=== PATIENT | male | born 1965 | race African-American/Black ===

== ENCOUNTER 2019-12-03 19:19 | Inpatient (IN) | payer OTHER ==
[~2019-12-03] VITALS: Ht 190.5 cm; Wt 87.7 kg
[~2019-12-03 19:19] MED LIST: AMLO5TAB9 PO; HYDR-1475 PO; LISI-660 PO
[2019-12-03 20:11] LABS: BASOPHILS % (AUTO) 0.7 % (0.0-2.0); EOSINOPHILS % (AUTO) 3.9 % (1.0-6.0); HEMATOCRIT 37.7 % (41-53); HEMOGLOBIN 12.7 g/dL (13.5-17.5); LYMPHOCYTES # (AUTO) 2.3 K/uL (1.0-4.8); LYMPHOCYTES % (AUTO) 32.9 % (22.0-44.0); MEAN CORPUSCULAR HEMOGLOBIN 31.9 pg (26.0-34.0); MEAN CORPUSCULAR HGB CONC 33.8 G/dL (31.0-37.0); MEAN CORPUSCULAR VOLUME 94 fL (80-100); MONOCYTES # (AUTO) 0.5 K/uL (0.1-1.0); MONOCYTES % (AUTO) 6.8 % (2.0-9.0); NEUTROPHILS # (AUTO) 3.9 K/uL (1.8-7.7); NEUTROPHILS % (AUTO) 55.7 % (40.0-70.0); PLATELET COUNT (AUTO) 247 K/uL (150-450); RED CELL DISTRIBUTION WIDTH 13.4 % (11.5-14.5)
[2019-12-03] MEDS ORDERED: ASPIRIN 325 MG TABLET PO ONE (20:15)
[2019-12-03 20:26] LABS: ANION GAP 9 mmol/L (8-16); CALCIUM, TOTAL 8.6 mg/dL (8.8-10.5); CARBON DIOXIDE 24 mmol/L (22-29); CHLORIDE 104 mmol/L (98-107); CREATININE 1.18 mg/dL (0.60-1.30); GLOMERULAR FILTR. RATE CALC > 60 mL/min (>60); GLUCOSE,RANDOM 93 mg/dL (70-110); POTASSIUM 3.6 mmol/L (3.5-5.1); SODIUM SERUM 137 mmol/L (136-145); UREA NITROGEN, BLOOD 25 mg/dL (7-18)
[2019-12-03 20:51] LABS: ALANINE AMINOTRANSFERASE 27 U/L (12-78); ALBUMIN 3.4 g/dL (3.4-5.0); ALKALINE PHOSPHATASE 60 U/L (46-116); ASPARTATE AMINOTRANSFERASE 19 U/L (15-37); BILIRUBIN,TOTAL 0.5 mg/dL (0.1-1.0); CREATINE KINASE, TOTAL ONLY 262 U/L (39-308); TOTAL PROTEIN, SERUM 6.6 g/dL (6.4-8.2)
[2019-12-03 20:52] LABS: D-DIMER 0.34 mg/L FEU (0.00-0.50)
[2019-12-03 20:57] LABS: B-TYPE NATRIURETIC PEPTIDE 14 pg/mL (0-100); PROTHROMBIN TIME 11.4 SEC (9.4-11.6)
[2019-12-03 20:58] LABS: INR 1.1 (0.9-1.1)
[2019-12-03 21:14] LABS: APPEARANCE,URINE CLEAR (CLEAR); BILIRUBIN,URINE NEGATIVE (NEGATIVE); GLUCOSE, URINE (UA) NEGATIVE (NEGATIVE); KETONES,URINE NEGATIVE (NEGATIVE); LEUKOCYTE ESTERASE ,URINE NEGATIVE (NEGATIVE); NITRATE,URINE NEGATIVE (NEGATIVE); OCCULT BLOOD,URINE NEGATIVE (NEGATIVE); PROTEIN,URINE NEGATIVE (NEGATIVE)
[2019-12-03] MEDS ORDERED: 0.9% SODIUM CHLORIDE 10 ML SYRINGE IVP PRN (22:15)
[2019-12-03] MEDS ORDERED: ACETAMINOPHEN 325 MG TABLET PO PRN (22:15)
[2019-12-03] MEDS ORDERED: ONDANSETRON HCL 4 MG/2 ML VIAL IVP PRN (22:15)
[2019-12-03 23:11] VITALS: BP 113/75
[2019-12-04] MEDS ORDERED: MAGNESIUM HYDROXIDE SUSPENSION 30 ML UDCUP PO PRN
[2019-12-04] MEDS ORDERED: HYDROCODONE/ACETAMINOPHEN 5-325 MG TABLET PO PRN
[2019-12-04] MEDS ORDERED: ZOLPIDEM TARTRATE 10 MG TABLET PO PRN
[2019-12-04] MEDS ORDERED: ONDANSETRON HCL 4 MG/2 ML VIAL IVP PRN
[2019-12-04] MEDS ORDERED: MORPHINE SULFATE 2 MG/ML SYRINGE IVP PRN
[2019-12-04] MEDS ORDERED: IPRATROPIUM BROMIDE 0.5 MG/2.5 ML NEB SOLUTION NEB PRN
[2019-12-04] MEDS ORDERED: ACETAMINOPHEN 325 MG TABLET PO PRN
[2019-12-04] MEDS: NITROGLYCERIN 2% (1 GM=INCH) PACKET TP SCH ×4 (00:04→18:13)
[2019-12-04 05:10] VITALS: BP 100/63
[2019-12-04 06:37] LABS: BASOPHILS % (AUTO) 0.8 % (0.0-2.0); EOSINOPHILS % (AUTO) 4.4 % (1.0-6.0); HEMATOCRIT 37.8 % (41-53); HEMOGLOBIN 12.6 g/dL (13.5-17.5); LYMPHOCYTES # (AUTO) 2.3 K/uL (1.0-4.8); LYMPHOCYTES % (AUTO) 40.7 % (22.0-44.0); MEAN CORPUSCULAR HEMOGLOBIN 31.9 pg (26.0-34.0); MEAN CORPUSCULAR HGB CONC 33.3 G/dL (31.0-37.0); MEAN CORPUSCULAR VOLUME 96 fL (80-100); MONOCYTES # (AUTO) 0.4 K/uL (0.1-1.0); MONOCYTES % (AUTO) 7.4 % (2.0-9.0); NEUTROPHILS # (AUTO) 2.7 K/uL (1.8-7.7); NEUTROPHILS % (AUTO) 46.7 % (40.0-70.0); PLATELET COUNT (AUTO) 235 K/uL (150-450); RED BLOOD CELL COUNT(AUTO) 3.95 MIL/uL (4.50-5.90); RED CELL DISTRIBUTION WIDTH 13.4 % (11.5-14.5)
[2019-12-04 06:59] LABS: ALANINE AMINOTRANSFERASE 26 U/L (12-78); ALBUMIN 3.3 g/dL (3.4-5.0); ALKALINE PHOSPHATASE 59 U/L (46-116); ANION GAP 8 mmol/L (8-16); ASPARTATE AMINOTRANSFERASE 16 U/L (15-37); BILIRUBIN,TOTAL 0.7 mg/dL (0.1-1.0); CALCIUM, TOTAL 8.8 mg/dL (8.8-10.5); CARBON DIOXIDE 26 mmol/L (22-29); CHLORIDE 107 mmol/L (98-107); CHOL/HDL RATIO 2.5 (4.2-7.3); CHOLESTEROL 115 mg/dL (131-200); CREATININE 1.19 mg/dL (0.60-1.30); GLOMERULAR FILTR. RATE CALC > 60 mL/min (>60); GLUCOSE,RANDOM 95 mg/dL (70-110); HDL CHOLESTEROL 46 mg/dL (40-60); LDL CHOL (CALC.) 52 mg/dL (0-130); POTASSIUM 3.9 mmol/L (3.5-5.1); SODIUM SERUM 141 mmol/L (136-145); TOTAL PROTEIN, SERUM 6.4 g/dL (6.4-8.2); TRIGLYCERIDES 83 mg/dL (15-150); UREA NITROGEN, BLOOD 22 mg/dL (7-18)
[2019-12-04 07:22] VITALS: BP 114/65
[2019-12-04] MEDS: ASPIRIN 81 MG CHEWABLE TABLET PO SCH (08:04)
[2019-12-04] MEDS: DOCUSATE SODIUM 100 MG CAPSULE PO SCH ×2 (08:05→21:00)
[2019-12-04] MEDS ORDERED: METO-558 PO (08:48)
[2019-12-04] MEDS ORDERED: FURO40 PO (08:48)
[2019-12-04] MEDS ORDERED: GABA-531 PO (08:48)
[2019-12-04] MEDS: METOPROLOL SUCCINATE 50 MG ER TABLET PO SCH (09:00)
[2019-12-04] MEDS: FUROSEMIDE 40 MG TABLET PO SCH ×2 (09:34→21:01)
[2019-12-04] MEDS: LISINOPRIL 5 MG TABLET PO SCH (09:34)
[2019-12-04] MEDS: GABAPENTIN 300 MG CAPSULE PO SCH ×2 (09:34→21:00)
[2019-12-04 11:12] VITALS: BP 104/58
[2019-12-04 15:10] VITALS: BP 105/56
[2019-12-04 19:40] VITALS: BP 113/68
[2019-12-05 00:18] VITALS: BP 101/62
[2019-12-05 04:57] VITALS: BP 105/59
[2019-12-05] MEDS: NITROGLYCERIN 2% (1 GM=INCH) PACKET TP SCH ×3 (06:59→12:00)
[2019-12-05 07:15] VITALS: BP 121/75
[2019-12-05] MEDS: METOPROLOL SUCCINATE 50 MG ER TABLET PO SCH (07:23)
[2019-12-05] MEDS: LISINOPRIL 5 MG TABLET PO SCH (07:42)
[2019-12-05] MEDS: DOCUSATE SODIUM 100 MG CAPSULE PO SCH (07:42)
[2019-12-05] MEDS: ASPIRIN 81 MG CHEWABLE TABLET PO SCH (07:42)
[2019-12-05] MEDS: GABAPENTIN 300 MG CAPSULE PO SCH (07:42)
[2019-12-05] MEDS: FUROSEMIDE 40 MG TABLET PO SCH (07:42)
[2019-12-05 10:38] VITALS: BP 111/59
== END 2019-12-05 14:35 | disposition home or self-care (01) | DRG 203 ==
LOC: EMS 19:19 → 5S 21:30
PROVIDERS: ADMIT Hospitalist; ATTEND Hospitalist
DX: M94.0 Chondrocostal junction syndrome [Tietze] (principal); I11.0 Hypertensive heart disease with heart failure; I50.9 Heart failure, unspecified; R07.89 Other chest pain; I25.10 Atherosclerotic heart disease of native coronary artery without angina pectoris; F17.210 Nicotine dependence, cigarettes, uncomplicated; Z88.0 Allergy status to penicillin; Z95.5 Presence of coronary angioplasty implant and graft
CPT/HCPCS: 85379; 87081; 93005; 93306; J2270

== ENCOUNTER 2023-09-27 11:00 | Inpatient (IN) | payer OTHER ==
[~2023-09-27] VITALS: Ht 185.4 cm; Wt 105.0 kg
[~2023-09-27 11:00] MED LIST changes: -AMLO5TAB9 PO; +ASPI-1444 PO; +ATOR40TA71 PO; +FURO40 PO; +GABA-1181 PO; -HYDR-1475 PO; -LISI-660 PO; +LISI-892 PO; +METO-558 PO
[2023-09-27] MEDS ORDERED: METO-391 PO (11:08)
[2023-09-27 11:29] LABS: BASOPHILS % (AUTO) 0.7 % (0.0-2.0); EOSINOPHILS % (AUTO) 1.8 % (1.0-6.0); HEMATOCRIT 46.7 % (41-53); HEMOGLOBIN 15.6 g/dL (13.5-17.5); LYMPHOCYTES # (AUTO) 2.3 K/uL (1.0-4.8); LYMPHOCYTES % (AUTO) 31.8 % (22.0-44.0); MEAN CORPUSCULAR HEMOGLOBIN 31.3 pg (26.0-34.0); MEAN CORPUSCULAR HGB CONC 33.5 G/dL (31.0-37.0); MEAN CORPUSCULAR VOLUME 94 fL (80-100); MONOCYTES # (AUTO) 0.6 K/uL (0.1-1.0); NEUTROPHILS # (AUTO) 4.1 K/uL (1.8-7.7); NEUTROPHILS % (AUTO) 57.7 % (40.0-70.0); PLATELET COUNT (AUTO) 276 K/uL (150-450); WHITE BLOOD COUNT (AUTO) 7.1 K/uL (4.5-11.0)
[2023-09-27 11:32] LABS: APPEARANCE,URINE HAZY (CLEAR); BILIRUBIN,URINE NEGATIVE (NEGATIVE); GLUCOSE, URINE (UA) NEGATIVE (NEGATIVE); KETONES,URINE NEGATIVE (NEGATIVE); LEUKOCYTE ESTERASE ,URINE NEGATIVE (NEGATIVE); NITRATE,URINE NEGATIVE (NEGATIVE); OCCULT BLOOD,URINE LARGE (NEGATIVE); PH,URINE 6.5 (5.0-8.0); PROTEIN,URINE TRACE mg/dL (NEGATIVE); SPECIFIC GRAVITIY, URINE 1.009 (1.003-1.030); UROBILINOGEN,URINE <=1.0 mg/dL (<=1.0)
[2023-09-27 11:34] LABS: COLOR,URINE RED (YELLOW); RBC,URINE Full Field /HPF (0-2)
[2023-09-27 11:35] LABS: BACTERIA,URINE None Seen /HPF (None Seen); SQUAMOUS EPITHELIAL CELL,UR Few /LPF (None Seen); WBC,URINE None Seen /HPF (0-5)
[2023-09-27 11:38] LABS: ANION GAP 10 mmol/L (8-16); CALCIUM, TOTAL 9.7 mg/dL (8.8-10.5); CARBON DIOXIDE 28 mmol/L (22-29); CHLORIDE 101 mmol/L (98-107); CREATININE 1.25 mg/dL (0.60-1.30); GLOMERULAR FILTR. RATE CALC > 60 mL/min (>60); GLUCOSE,RANDOM 110 mg/dL (70-110); POTASSIUM 3.8 mmol/L (3.5-5.1); SODIUM SERUM 139 mmol/L (136-145); UREA NITROGEN, BLOOD 13 mg/dL (7-18)
[2023-09-27 11:43] LABS: ALANINE AMINOTRANSFERASE 27 U/L (12-78); ALBUMIN 3.9 g/dL (3.4-5.0); ALKALINE PHOSPHATASE 70 U/L (46-116); ASPARTATE AMINOTRANSFERASE 20 U/L (15-37); BILIRUBIN,TOTAL 1.2 mg/dL (0.1-1.0); TOTAL PROTEIN, SERUM 7.5 g/dL (6.4-8.2)
[2023-09-27 11:46] LABS: TROPONIN I-HIGH SENSITIVITY 97 ng/L (<76)
[2023-09-27] MEDS: NITROGLYCERIN 2% (1 GM=INCH) OINTMENT PACKET TP ONE (13:25)
[2023-09-27] MEDS ORDERED: PRIM250T3 PO (13:25)
[2023-09-27] MEDS: KETOROLAC TROMETHAMINE 30 MG/ML VIAL IVP ONE (14:11)
[2023-09-27] MEDS ORDERED: ACETAMINOPHEN 325 MG TABLET PO PRN (15:00)
[2023-09-27] MEDS ORDERED: ZOLPIDEM TARTRATE 5 MG TABLET PO PRN (15:00)
[2023-09-27] MEDS ORDERED: MAGNESIUM HYDROXIDE SUSPENSION 30 ML UDCUP PO PRN (15:00)
[2023-09-27] MEDS ORDERED: BISACODYL 10 MG RECTAL RECTAL SUPPOSITORY PR PRN (15:00)
[2023-09-27] MEDS ORDERED: ONDANSETRON HCL 4 MG/2 ML VIAL IVP PRN (15:00)
[2023-09-27 15:23] VITALS: BP 99/58; PULSE 70; RESP 19; TEMP 98.3
[2023-09-27] MEDS: MORPHINE SULFATE 2 MG/ML SYRINGE IVP PRN (15:49)
[2023-09-27 18:00] LABS: TROPONIN I-HIGH SENSITIVITY 89 ng/L (<76)
[2023-09-27 20:25] VITALS: BP 104/65; PULSE 70; RESP 18; TEMP 97.8
[2023-09-27] MEDS: DOCUSATE SODIUM 100 MG CAPSULE PO SCH (20:52)
[2023-09-27] MEDS: FUROSEMIDE 40 MG TABLET PO SCH (20:52)
[2023-09-28 00:37] VITALS: BP 111/72; PULSE 68; RESP 18; TEMP 98
[2023-09-28 04:19] VITALS: BP 106/55; PULSE 69; RESP 18; TEMP 98.6
[2023-09-28 06:49] LABS: BASOPHILS % (AUTO) 0.5 % (0.0-2.0); EOSINOPHILS % (AUTO) 2.1 % (1.0-6.0); HEMATOCRIT 39.9 % (41-53); HEMOGLOBIN 13.5 g/dL (13.5-17.5); LYMPHOCYTES # (AUTO) 1.9 K/uL (1.0-4.8); LYMPHOCYTES % (AUTO) 27.4 % (22.0-44.0); MEAN CORPUSCULAR HEMOGLOBIN 31.3 pg (26.0-34.0); MEAN CORPUSCULAR HGB CONC 33.9 G/dL (31.0-37.0); MEAN CORPUSCULAR VOLUME 92 fL (80-100); MONOCYTES # (AUTO) 0.6 K/uL (0.1-1.0); MONOCYTES % (AUTO) 9.3 % (2.0-9.0); NEUTROPHILS # (AUTO) 4.2 K/uL (1.8-7.7); NEUTROPHILS % (AUTO) 60.7 % (40.0-70.0); PLATELET COUNT (AUTO) 247 K/uL (150-450); RED BLOOD CELL COUNT(AUTO) 4.32 MIL/uL (4.50-5.90); RED CELL DISTRIBUTION WIDTH 12.6 % (11.5-14.5); WHITE BLOOD COUNT (AUTO) 6.9 K/uL (4.5-11.0)
[2023-09-28 07:14] LABS: ANION GAP 10 mmol/L (8-16); CALCIUM, TOTAL 8.9 mg/dL (8.8-10.5); CARBON DIOXIDE 26 mmol/L (22-29); CHLORIDE 100 mmol/L (98-107); CREATININE 1.13 mg/dL (0.60-1.30); GLOMERULAR FILTR. RATE CALC > 60 mL/min (>60); GLUCOSE,RANDOM 118 mg/dL (70-110); POTASSIUM 3.5 mmol/L (3.5-5.1); SODIUM SERUM 135 mmol/L (136-145); UREA NITROGEN, BLOOD 16 mg/dL (7-18)
[2023-09-28] MEDS: ASPIRIN 81 MG DR TABLET PO SCH (07:50)
[2023-09-28] MEDS: ATORVASTATIN CALCIUM 40 MG TABLET PO SCH (07:51)
[2023-09-28] MEDS: PANTOPRAZOLE SODIUM 40 MG DR TABLET PO SCH (07:52)
[2023-09-28] MEDS: METOPROLOL SUCCINATE 50 MG ER TABLET PO SCH (07:53)
[2023-09-28] MEDS: LISINOPRIL 5 MG TABLET PO SCH (07:53)
[2023-09-28] MEDS: HYDROCODONE/ACETAMINOPHEN 5-325 MG TABLET PO PRN (10:59)
[2023-09-28 12:07] LABS: HEPATITIS C AB (EIA) Non Reactive (Non Reactive)
[2023-09-28 14:53] LABS: TROPONIN I-HIGH SENSITIVITY 78 ng/L (<76)
[2023-09-28 15:19] VITALS: BP 126/78; PULSE 57; RESP 18; TEMP 98.4
[2023-09-28] MEDS ORDERED: SODIUM CHLORIDE 0.9% 100 ML ONE (17:49)
[2023-09-28] MEDS ORDERED: IOHEXOL 350 MG/ML 100 ML VIAL ONE (17:49)
[2023-09-28 20:00] VITALS: BP 113/74; PULSE 54; RESP 19; TEMP 98.3
[2023-09-29] VITALS: BP 121/69; PULSE 66; RESP 17; TEMP 98
[2023-09-29 04:00] VITALS: BP 113/70; PULSE 65; RESP 18; TEMP 98.1
[2023-09-29 06:48] LABS: BASOPHILS % (AUTO) 0.4 % (0.0-2.0); EOSINOPHILS % (AUTO) 2.4 % (1.0-6.0); HEMATOCRIT 40.4 % (41-53); HEMOGLOBIN 13.5 g/dL (13.5-17.5); LYMPHOCYTES # (AUTO) 1.8 K/uL (1.0-4.8); LYMPHOCYTES % (AUTO) 29.6 % (22.0-44.0); MEAN CORPUSCULAR HEMOGLOBIN 31.1 pg (26.0-34.0); MEAN CORPUSCULAR HGB CONC 33.4 G/dL (31.0-37.0); MEAN CORPUSCULAR VOLUME 93 fL (80-100); MONOCYTES # (AUTO) 0.5 K/uL (0.1-1.0); MONOCYTES % (AUTO) 7.8 % (2.0-9.0); NEUTROPHILS # (AUTO) 3.6 K/uL (1.8-7.7); NEUTROPHILS % (AUTO) 59.8 % (40.0-70.0); PLATELET COUNT (AUTO) 236 K/uL (150-450); RED BLOOD CELL COUNT(AUTO) 4.33 MIL/uL (4.50-5.90); RED CELL DISTRIBUTION WIDTH 12.9 % (11.5-14.5); WHITE BLOOD COUNT (AUTO) 6.1 K/uL (4.5-11.0)
[2023-09-29 08:08] VITALS: BP 118/70; PULSE 59; RESP 18; TEMP 98
[2023-09-29 11:05] VITALS: BP 100/57; PULSE 55; RESP 18; TEMP 99
== END 2023-09-29 13:20 | disposition home or self-care (01) | DRG 500 ==
LOC: EMS 11:00 → 5S 13:49
PROVIDERS: ADMIT Internal Medicine; ATTEND Internal Medicine
DX: C61 Malignant neoplasm of prostate (principal); C79.51 Secondary malignant neoplasm of bone; I11.0 Hypertensive heart disease with heart failure; I50.9 Heart failure, unspecified; I42.7 Cardiomyopathy due to drug and external agent; F17.210 Nicotine dependence, cigarettes, uncomplicated; E78.5 Hyperlipidemia, unspecified; G89.3 Neoplasm related pain (acute) (chronic); Z88.0 Allergy status to penicillin; Z79.899 Other long term (current) drug therapy; Z79.82 Long term (current) use of aspirin
CPT/HCPCS: 71045; 71260; 72193; 74160; 74176; 80048; 80053; 81001; 83880; 84153; 84484; 85025; 86803; 87340; 93005; 93306; 99285; J1885; J2270; J7050; Q9967; 36415-L1; 36415-TC

== ENCOUNTER 2024-02-21 03:33 | Emergency (ER) | payer OTHER ==
[~2024-02-21] VITALS: Ht 190.5 cm; Wt 101.8 kg
[~2024-02-21 03:33] MED LIST changes: -GABA-1181 PO; +METO-391 PO; -METO-558 PO; +PRIM250T3 PO
[2024-02-21 03:47] VITALS: BP 135/76; PULSE 88; RESP 18; TEMP 97.3
== END 2024-02-21 04:35 | disposition home or self-care (01) ==
LOC: EMS 03:33
DX: S50.861A Insect bite (nonvenomous) of right forearm, initial encounter (principal); M79.601 Pain in right arm; D09.9 Carcinoma in situ, unspecified; I11.0 Hypertensive heart disease with heart failure; I50.9 Heart failure, unspecified; F17.210 Nicotine dependence, cigarettes, uncomplicated; W57.XXXA Bitten or stung by nonvenomous insect and other nonvenomous arthropods, initial encounter; Y93.89 Activity, other specified; Y92.89 Other specified places as the place of occurrence of the external cause; Y99.8 Other external cause status
CPT/HCPCS: 99281; Z7502

== ENCOUNTER 2024-08-10 12:59 | Inpatient (IN) | payer OTHER ==
[~2024-08-10] VITALS: Ht 177.8 cm; Wt 90.9 kg
[~2024-08-10 12:59] MED LIST changes: -FURO40 PO; +FURO40TA6 PO
[2024-08-10 13:31] LABS: COVID AG,FIA SOURCE NASAL SWAB
[2024-08-10] MEDS: SODIUM CHLORIDE 0.9% 1,000 ML IV ONE (13:44)
[2024-08-10 13:47] LABS: BASOPHILS % (AUTO) 0.3 % (0.0-2.0); CREATININE 1.66 mg/dL (0.60-1.30); EOSINOPHILS % (AUTO) 0 % (1.0-6.0); HEMATOCRIT 41.2 % (41-53); HEMOGLOBIN 13.7 g/dL (13.5-17.5); LYMPHOCYTES # (AUTO) 0.4 K/uL (1.0-4.8); LYMPHOCYTES % (AUTO) 8.2 % (22.0-44.0); MEAN CORPUSCULAR HEMOGLOBIN 31.4 pg (26.0-34.0); MEAN CORPUSCULAR HGB CONC 33.3 G/dL (31.0-37.0); MEAN CORPUSCULAR VOLUME 94 fL (80-100); MONOCYTES # (AUTO) 0.6 K/uL (0.1-1.0); MONOCYTES % (AUTO) 13.7 % (2.0-9.0); NEUTROPHILS # (AUTO) 3.5 K/uL (1.8-7.7); NEUTROPHILS % (AUTO) 77.8 % (40.0-70.0); PLATELET COUNT (AUTO) 170 K/uL (150-450); POTASSIUM 3.9 mmol/L (3.5-5.1); RED BLOOD CELL COUNT(AUTO) 4.37 MIL/uL (4.50-5.90); RED CELL DISTRIBUTION WIDTH 13.9 % (11.5-14.5); WHITE BLOOD COUNT (AUTO) 4.5 K/uL (4.5-11.0)
[2024-08-10 13:51] LABS: SARS-COV2 (COVID) ANTIGEN,FIA Negative (Negative)
[2024-08-10 13:57] LABS: INFLUENZA TYPE B NEGATIVE FOR TYPE B (NEGATIVE)
[2024-08-10 14:00] LABS: INFLUENZA TYPE A POSITIVE FOR TYPE A (NEGATIVE)
[2024-08-10 14:02] LABS: TROPONIN I-HIGH SENSITIVITY 131 ng/L (<76)
[2024-08-10 15:22] LABS: TROPONIN I-HIGH SENSITIVITY 89 ng/L (<76)
[2024-08-10] MEDS: MORPHINE SULFATE 2 MG/ML SYRINGE IVP ONE (16:18)
[2024-08-10] MEDS: ONDANSETRON HCL 4 MG/2 ML VIAL IVP ONE (16:34)
[2024-08-10] MEDS ORDERED: IPRATROPIUM BROMIDE 0.5 MG/2.5 ML NEB SOLUTION NEB PRN (19:15)
[2024-08-10] MEDS ORDERED: ALBUTEROL SULFATE 2.5 MG/0.5 ML NEB SOLUTION NEB PRN (19:15)
[2024-08-10] MEDS ORDERED: ONDANSETRON HCL 4 MG/2 ML VIAL IVP PRN (19:15)
[2024-08-10] MEDS: ASPIRIN 81 MG CHEWABLE TABLET PO ONE (19:25)
[2024-08-10] MEDS: OSELTAMIVIR PHOSPHATE 30 MG CAPSULE PO SCH (20:22)
[2024-08-10] MEDS: METOPROLOL TARTRATE 25 MG TABLET PO SCH (20:22)
[2024-08-10] MEDS: ACETAMINOPHEN 325 MG TABLET PO PRN (20:22)
[2024-08-10] MEDS: DOCUSATE SODIUM 100 MG CAPSULE PO SCH (20:22)
[2024-08-10] MEDS: SODIUM CHLORIDE 0.9% 250 ML IV ONE (22:05)
[2024-08-10 23:24] LABS: TROPONIN I-HIGH SENSITIVITY 127 ng/L (<76)
[2024-08-11] MEDS: HEPARIN SODIUM,PORCINE 5,000 UNITS/ML VIAL SQ SCH (00:27)
[2024-08-11 06:54] LABS: BASOPHILS % (AUTO) 0.3 % (0.0-2.0); EOSINOPHILS % (AUTO) 0 % (1.0-6.0); HEMATOCRIT 36.8 % (41-53); HEMOGLOBIN 12.4 g/dL (13.5-17.5); LYMPHOCYTES # (AUTO) 0.5 K/uL (1.0-4.8); LYMPHOCYTES % (AUTO) 13.9 % (22.0-44.0); MEAN CORPUSCULAR HEMOGLOBIN 31.6 pg (26.0-34.0); MEAN CORPUSCULAR HGB CONC 33.8 G/dL (31.0-37.0); MEAN CORPUSCULAR VOLUME 93 fL (80-100); MONOCYTES # (AUTO) 0.4 K/uL (0.1-1.0); MONOCYTES % (AUTO) 11.3 % (2.0-9.0); NEUTROPHILS # (AUTO) 2.5 K/uL (1.8-7.7); NEUTROPHILS % (AUTO) 74.5 % (40.0-70.0); PLATELET COUNT (AUTO) 146 K/uL (150-450); RED BLOOD CELL COUNT(AUTO) 3.94 MIL/uL (4.50-5.90); RED CELL DISTRIBUTION WIDTH 13.4 % (11.5-14.5); WHITE BLOOD COUNT (AUTO) 3.4 K/uL (4.5-11.0)
[2024-08-11 07:11] LABS: ANION GAP 10 mmol/L (8-16); CALCIUM, TOTAL 8.2 mg/dL (8.8-10.5); CARBON DIOXIDE 24 mmol/L (22-29); CHLORIDE 107 mmol/L (98-107); CREATININE 1.28 mg/dL (0.60-1.30); GLOMERULAR FILTR. RATE CALC > 60 mL/min (>60); GLUCOSE,RANDOM 101 mg/dL (70-110); POTASSIUM 3.9 mmol/L (3.5-5.1); SODIUM SERUM 141 mmol/L (136-145); UREA NITROGEN, BLOOD 24 mg/dL (7-18)
[2024-08-11] MEDS ORDERED: RELU120T PO (07:45)
[2024-08-11] MEDS ORDERED: CALC-959 PO (07:45)
[2024-08-11] MEDS ORDERED: GABA-1181 PO (07:45)
[2024-08-11] MEDS ORDERED: TAMS0.4C94 PO (07:45)
[2024-08-11 07:48] VITALS: BP 105/79; PULSE 84; RESP 18; TEMP 98.3; O2SAT 93
[2024-08-11 07:52] VITALS: BP 120/68; PULSE 73; RESP 18; TEMP 99.9; O2SAT 99
[2024-08-11] MEDS: ASPIRIN 81 MG CHEWABLE TABLET PO SCH (09:47)
[2024-08-11 11:51] VITALS: BP 98/53; PULSE 71; RESP 18; TEMP 99.7; O2SAT 100
[2024-08-11] MEDS: PERFLUTREN PROTEIN-A MICROSPHERES 0.22 MG/ML 3 ML VIAL IVP ONE (13:27)
[2024-08-11 15:58] VITALS: BP 116/76; PULSE 68; RESP 18; TEMP 99.6; O2SAT 98
[2024-08-11] MEDS: GABAPENTIN 300 MG CAPSULE PO SCH (16:26)
[2024-08-11 20:05] VITALS: BP 101/65; PULSE 80; RESP 18; TEMP 99.8; O2SAT 95
[2024-08-11] MEDS: OSELTAMIVIR PHOSPHATE 75 MG CAPSULE PO SCH (20:47)
[2024-08-11] MEDS: CALCIUM OYSTER SHELL 250 MG-VIT D3 125 UNITS[3.125MCG] TABLET PO SCH (20:47)
[2024-08-11] MEDS: ATORVASTATIN CALCIUM 40 MG TABLET PO SCH (20:47)
[2024-08-12] VITALS (7 sets, daily range): BP systolic 94–124; BP diastolic 55–80; PULSE 64–71; RESP 17–19; TEMP 98.1–99.5; O2SAT 95–100
[2024-08-12 08:00] LABS: BASOPHILS % (AUTO) 1.8 % (0.0-2.0); EOSINOPHILS % (AUTO) 0.4 % (1.0-6.0); HEMATOCRIT 35.8 % (41-53); HEMOGLOBIN 12.2 g/dL (13.5-17.5); LYMPHOCYTES # (AUTO) 0.7 K/uL (1.0-4.8); LYMPHOCYTES % (AUTO) 27.9 % (22.0-44.0); MEAN CORPUSCULAR HEMOGLOBIN 31.9 pg (26.0-34.0); MEAN CORPUSCULAR HGB CONC 34.1 G/dL (31.0-37.0); MEAN CORPUSCULAR VOLUME 94 fL (80-100); MONOCYTES # (AUTO) 0.4 K/uL (0.1-1.0); MONOCYTES % (AUTO) 16.6 % (2.0-9.0); NEUTROPHILS # (AUTO) 1.3 K/uL (1.8-7.7); NEUTROPHILS % (AUTO) 53.3 % (40.0-70.0); PLATELET COUNT (AUTO) 130 K/uL (150-450); RED BLOOD CELL COUNT(AUTO) 3.83 MIL/uL (4.50-5.90); RED CELL DISTRIBUTION WIDTH 13.4 % (11.5-14.5); WHITE BLOOD COUNT (AUTO) 2.4 K/uL (4.5-11.0)
[2024-08-12 08:03] LABS: ANION GAP 10 mmol/L (8-16); CARBON DIOXIDE 24 mmol/L (22-29); CHLORIDE 106 mmol/L (98-107); CREATININE 1.22 mg/dL (0.60-1.30); GLOMERULAR FILTR. RATE CALC > 60 mL/min (>60); GLUCOSE,RANDOM 100 mg/dL (70-110); POTASSIUM 3.7 mmol/L (3.5-5.1); SODIUM SERUM 140 mmol/L (136-145); UREA NITROGEN, BLOOD 18 mg/dL (7-18)
[2024-08-12] MEDS ORDERED: [UNRECOGNIZED DRUG - OTHER] PO SCH (09:00)
[2024-08-12] MEDS: METOPROLOL SUCCINATE 50 MG ER TABLET PO SCH (09:23)
[2024-08-12] MEDS: LISINOPRIL 5 MG TABLET PO SCH (09:23)
[2024-08-12] MEDS: TAMSULOSIN HCL 0.4 MG CAPSULE PO SCH (09:23)
[2024-08-12] MEDS: FUROSEMIDE 20 MG TABLET PO SCH (09:24)
[2024-08-12 12:59] LABS: TROPONIN I-HIGH SENSITIVITY 128 ng/L (<76)
[2024-08-12] MEDS: SODIUM CHLORIDE 0.9% 500 ML IV ONE (13:53)
[2024-08-12] MEDS: CefTRIAXone 1 GM/DEXTROSE 50 ML IV SCH (15:53)
[2024-08-12] MEDS: AZITHROMYCIN 500 MG/NS 250 ML IV SCH (16:56)
[2024-08-12] MEDS: PANTOPRAZOLE SODIUM 40 MG/VIAL IVP SCH (22:03)
[2024-08-13 04:00] VITALS: BP 123/73; PULSE 61; RESP 17; TEMP 98; O2SAT 96
[2024-08-13 07:15] LABS: BASOPHILS % (AUTO) 0.6 % (0.0-2.0); HEMOGLOBIN 11.4 g/dL (13.5-17.5); LYMPHOCYTES # (AUTO) 0.8 K/uL (1.0-4.8); LYMPHOCYTES % (AUTO) 38.7 % (22.0-44.0); MEAN CORPUSCULAR HGB CONC 34.4 G/dL (31.0-37.0); MEAN CORPUSCULAR VOLUME 93 fL (80-100); MONOCYTES # (AUTO) 0.3 K/uL (0.1-1.0); MONOCYTES % (AUTO) 15.3 % (2.0-9.0); NEUTROPHILS % (AUTO) 44.4 % (40.0-70.0); PLATELET COUNT (AUTO) 127 K/uL (150-450); RED BLOOD CELL COUNT(AUTO) 3.54 MIL/uL (4.50-5.90); RED CELL DISTRIBUTION WIDTH 13.3 % (11.5-14.5); WHITE BLOOD COUNT (AUTO) 2.2 K/uL (4.5-11.0)
[2024-08-13 07:35] LABS: ANION GAP 11 mmol/L (8-16); CALCIUM, TOTAL 7.8 mg/dL (8.8-10.5); CARBON DIOXIDE 23 mmol/L (22-29); CHLORIDE 107 mmol/L (98-107); CREATININE 1.07 mg/dL (0.60-1.30); GLOMERULAR FILTR. RATE CALC > 60 mL/min (>60); GLUCOSE,RANDOM 99 mg/dL (70-110); POTASSIUM 3.6 mmol/L (3.5-5.1); SODIUM SERUM 141 mmol/L (136-145); UREA NITROGEN, BLOOD 14 mg/dL (7-18)
[2024-08-13 09:04] VITALS: BP 108/78; PULSE 78; RESP 20; TEMP 97.4; O2SAT 100
== END 2024-08-13 09:25 | disposition left against medical advice (07) | DRG 139 ==
LOC: EMS 12:59 → EDH 19:13 → 5S 08-11 06:20
PROVIDERS: ADMIT Internal Medicine; ATTEND Internal Medicine
DX: J10.00 Influenza due to other identified influenza virus with unspecified type of pneumonia (principal); N17.0 Acute kidney failure with tubular necrosis; I13.0 Hypertensive heart and chronic kidney disease with heart failure and stage 1 through stage 4 chronic kidney disease, or unspecified chronic kidney disease; I21.A1 Myocardial infarction type 2; I50.9 Heart failure, unspecified; I95.9 Hypotension, unspecified; I42.9 Cardiomyopathy, unspecified; D64.9 Anemia, unspecified; Z20.822 Contact with and (suspected) exposure to COVID-19; N18.30 Chronic kidney disease, stage 3 unspecified; Z53.29 Procedure and treatment not carried out because of patient's decision for other reasons; I49.3 Ventricular premature depolarization; G25.0 Essential tremor; Z88.0 Allergy status to penicillin; Z87.891 Personal history of nicotine dependence
CPT/HCPCS: 71045; 71250; 80048; 82271; 83605; 83735; 83880; 84484; 85025; 87040; 87804; 89055; 93005; 93306; 99285; C8929; G0378; J0456; J0696; J1644; J2270; J2405; J2470; J7050; 36415-L1; 36415-TC; C8928